=== PATIENT | female | born 2000 | race Caucasian/White ===

== ENCOUNTER 2025-06-02 21:11 | Emergency (ER) | payer BC ==
[~2025-06-02] VITALS: Ht 162.6 cm; Wt 96.6 kg
[~2025-06-02 21:11] MED LIST: DOCU100 PO
[2025-06-03 01:00] VITALS: BP 130/77
== END 2025-06-03 01:07 | disposition home or self-care (01) ==
LOC: ER 21:11
DX: S96.911A Strain of unspecified muscle and tendon at ankle and foot level, right foot, initial encounter (principal); X50.0XXA Overexertion from strenuous movement or load, initial encounter; Z88.8 Allergy status to other drugs, medicaments and biological substances
CPT/HCPCS: 73610; 99283-25